=== PATIENT | male | born 1940 | race Caucasian/White ===

== ENCOUNTER 2017-05-22 07:12 | Day surgery (SDC) | payer MEDICARE, OTHER ==
--- NOTE | 2017-05-14 11:24 | RADIOLOGY REPORT (SQ) ---
EXAM DESCRIPTION: CHEST PA/LATERAL COMPLETED DATE/TIME: 05/14/2017 11:02 am REASON FOR STUDY: PRE-OP COMPARISON: Two-view chest 05/16/2016 EXAM PARAMETERS: NUMBER OF VIEWS: two views TECHNIQUE: Digital Frontal and Lateral radiographic views of the chest acquired. RADIATION DOSE: NA LIMITATIONS: none FINDINGS: LUNGS AND PLEURA: Obstructive lung disease with hyperinflation and hyperlucency. Flatteni ng of the hemidiaphragms. Biapical pleural-parenchymal scarring. No acute infiltrates. No pleural effusion. No pneumothorax. MEDIASTINUM AND HILAR STRUCTURES: No masses or contour abnormalities. HEART AND VASCULAR STRUCTURES: Heart normal size. No evidence for failure. BONES: Osteoporotic. No acute changes. Mild convex rightward thoracolumbar curvature HARDWARE: None in the chest. OTHER: No other significant finding. IMPRESSION: Obstructive lung disease TECHNICAL DOCUMENTATION: JOB ID: [id number] [employer]- All Rights Reserved
[2017-05-14 11:30] LABS: APPEARANCE,URINE CLEAR; BILIRUBIN,URINE NEGATIVE (NEGATIVE); GLUCOSE, URINE NEGATIVE (NEGATIVE); KETONES,URINE NEGATIVE (NEGATIVE); LEUKOCYTE ESTERASE,URINE NEGATIVE (NEGATIVE); NITRITE,URINE NEGATIVE (NEGATIVE); PROTEIN,URINE NEGATIVE (NEGATIVE); URINE SPECIFIC GRAVITY 1.004; UROBILINOGEN,URINE NEGATIVE mg/dL (<2.0)
[2017-05-14 11:39] LABS: ABSOLUTE BASOPHILS # (AUTO) 0.1 10^3/uL (0.0-0.2); ABSOLUTE EOSINOPHILS # (AUTO) 0.1 10^3/uL (0.0-0.6); ABSOLUTE LYMPHOCYTES (AUTO) 1.5 10^3/uL (0.5-4.7); ABSOLUTE MONOCYTES (AUTO) 0.6 10^3/uL (0.1-1.4); ABSOLUTE NEUT (AUTO) 5.9 10^3/uL (1.7-8.2); BASOPHILS % (AUTO) 1.2 % (0-2); EOSINOPHILS % (AUTO) 1.6 % (0-6); HEMATOCRIT 43.2 % (37.9-51.0); HEMOGLOBIN 14.3 g/dL (13.5-17.0); HGB HCT DIFFERENCE -0.3; LYMPHOCYTES % (AUTO) 18.4 % (13-45); MEAN CORPUSCULAR HEMOGLOBIN 32.5 pg (27.0-33.4); MEAN CORPUSCULAR HGB CONC 33.1 g/dL (32.0-36.0); MEAN CORPUSCULAR VOLUME 98 fl (80-97); MONOCYTES % (AUTO) 6.8 % (3-13); RED CELL DISTRIBUTION WIDTH 12.7 % (11.5-14.0); WHITE BLOOD COUNT 8.2 10^3/uL (4.0-10.5)
[2017-05-14 11:52] LABS: ANION GAP 10 (5-19); BLOOD UREA NITROGEN 15 mg/dL (7-20); CALCIUM 9.6 mg/dL (8.4-10.2); CARBON DIOXIDE 28 mmol/L (22-30); CHLORIDE 105 mmol/L (98-107); CREATININE RESULT 1.07 mg/dL (0.52-1.25); GLUCOSE 58 mg/dL (75-110); POTASSIUM 5.2 mmol/L (3.6-5.0); SODIUM 143.1 mmol/L (137-145)
--- NOTE | 2017-05-14 20:10 | EKG REPORT ---
SEVERITY:- BORDERLINE ECG - SINUS BRADYCARDIA SHORT TN INTERVAL, ACCELERATED AV CONDUCTION : Confirmed by: Tommy Reed 14-May-2017 20:09:56
[~2017-05-22 07:12] MED LIST: CEFAZOLIN 2 GM/D5W RTU 2 GM/50 ML RTUPB IV PRN; LACTATED RINGERS 1000 ML IV PRN
[2017-05-22] MEDS ORDERED: BUPIVACAINE HCL 0.5%-EPI 1:200000 INJ/PF 30 ML VIAL ONE (08:03)
[2017-05-22] MEDS ORDERED: PROPOFOL INJ 200 MG/20 ML VIAL IV ONE (09:14)
[2017-05-22] MEDS ORDERED: MIDAZOLAM 2 MG/2 ML INJ ONE (09:14)
[2017-05-22] MEDS ORDERED: MORPHINE SULFATE 10 MG/ML INJ ONE (09:14)
[2017-05-22] MEDS ORDERED: LIDOCAINE 1% INJ-PF (10 MG/ML) 30 ML SDV ONE (09:20)
[2017-05-22] MEDS ORDERED: PROMETHAZINE HCL INJ 25 MG/1 ML VIAL IV PRN ×2 (09:44)
[2017-05-22] MEDS ORDERED: MORPHINE SULFATE 10 MG/ML INJ IV PRN (09:44)
[2017-05-22] MEDS ORDERED: FENTANYL CITRATE INJ/PF 100 MCG/2 ML AMPUL IV PRN ×3 (09:44)
[2017-05-22] MEDS ORDERED: MEPERIDINE HCL/PF INJ 25 MG/1 ML DISP.SYRIN IV PRN (09:44)
[2017-05-22] MEDS ORDERED: DIPHENHYDRAMINE HCL 50 MG/ML VIAL IV PRN (09:44)
[2017-05-22] MEDS ORDERED: ONDANSETRON HCL INJ/PF 4 MG/2 ML SDV IV PRN (09:44)
[2017-05-22] MEDS ORDERED: OXYCODONE-ACETAMINOPHEN 5-325 MG TABLET PO PRN ×2 (09:44)
--- NOTE | 2017-05-22 09:48 | Operative Report ---
Operative Report DATE OF SURGERY: 05/22/17 PREOPERATIVE DIAGNOSIS: Left plantar foot mass OPERATION: Excision left foot plantar mass SURGEON: SUSIE MENENDEZ ANESTHESIA: LMAC TISSUE REMOVED OR ALTERED: Soft tissue specimen to pathology ESTIMATED BLOOD LOSS: Minimal PROCEDURE: With the patient prone on the operating table the left lower extremity from the supramalleolar region distal was prepped and draped in sterile fashion. The plantar surface of the foot around an existing soft tissue lesion is insufflated with a combination of Marcaine, Xylocaine, and epinephrine. Subsequent a transverse elliptical incision is made surrounding the lesion. The incision is carried down to the plantar fascia. The masses delivered from the field intact. And sent to pathology for further evaluation. The wound is irrigated. Hemostasis obtained with electrocautery. The wound was reapproximated using interrupted 3-0 nylon. A sterile dressing was applied and patient returned to the PACU in satisfactory condition.
[2017-05-22] MEDS ORDERED: OXYCODONE HCL IR 5 MG TABLET PO PRN (10:04)
[2017-05-22] MEDS ORDERED: ONDANSETRON 4 MG TAB.RAPDIS SL PRN (10:04)
[2017-05-22 12:49] VITALS: BP 125/87
== END 2017-05-22 11:50 | disposition home or self-care (01) ==
LOC: OROUT 07:12
PROVIDERS: ATTEND Orthopaedic Surgery
PROC: 0JBR0ZZ Excision of Left Foot Subcutaneous Tissue and Fascia, Open Approach (ICD-10-PCS; principal; 2017-05-22 09:00)
DX: R22.42 Localized swelling, mass and lump, left lower limb (principal); F17.210 Nicotine dependence, cigarettes, uncomplicated
CPT/HCPCS: 93005; 36415 ×2; 84132; 85025; 85652; 80048; 81001; 88305 ×2; 71020; 93010; 28043; J2250; J3490 ×2; J2704; J0690; 1470; J2270

== ENCOUNTER 2017-07-08 12:50 | Day surgery (SDC) | payer MEDICARE, OTHER ==
[2017-07-08] MEDS ORDERED: FENTANYL CITRATE INJ/PF 100 MCG/2 ML AMPUL ONE (13:34)
[2017-07-08] MEDS ORDERED: ACETAMINOPHEN 100 ML IV ONE (13:35)
[2017-07-08] MEDS ORDERED: PROPOFOL INJ 200 MG/20 ML VIAL IV ONE (13:35)
[2017-07-08] MEDS ORDERED: MIDAZOLAM 2 MG/2 ML INJ ONE (13:35)
[2017-07-08] MEDS ORDERED: CEFAZOLIN 2 GM/D5W RTU 2 GM/50 ML RTUPB IV ONE (13:36)
[2017-07-08] MEDS ORDERED: MEPERIDINE HCL/PF INJ 25 MG/1 ML DISP.SYRIN IV PRN (15:42)
[2017-07-08] MEDS ORDERED: ONDANSETRON HCL INJ/PF 4 MG/2 ML SDV IV PRN (15:42)
[2017-07-08] MEDS ORDERED: PROMETHAZINE HCL INJ 25 MG/1 ML VIAL IV PRN ×2 (15:42)
[2017-07-08] MEDS ORDERED: MORPHINE SULFATE 10 MG/ML INJ IV PRN (15:42)
[2017-07-08] MEDS ORDERED: FENTANYL CITRATE INJ/PF 100 MCG/2 ML AMPUL IV PRN ×3 (15:42)
[2017-07-08] MEDS ORDERED: OXYCODONE-ACETAMINOPHEN 5-325 MG TABLET PO PRN ×2 (15:42)
[2017-07-08] MEDS ORDERED: DIPHENHYDRAMINE HCL 50 MG/ML VIAL IV PRN (15:42)
[2017-07-08] MEDS ORDERED: BUPIVACAINE HCL 0.5%-EPI 1:200000 INJ/PF 30 ML VIAL INJ ONE (15:45)
[2017-07-08] MEDS ORDERED: OXYCODONE HCL IR 5 MG TABLET PO PRN (16:20)
[2017-07-08] MEDS ORDERED: ONDANSETRON 4 MG TAB.RAPDIS SL PRN (16:21)
[2017-07-08 18:29] VITALS: BP 142/69
--- NOTE | 2017-07-09 06:01 | Operative Report ---
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 The skin surrounding the previous resection is insufflated with Marcaine with epinephrine. The existing incision is intact. Sutures are in place. The new incision is spaced 1 cm from the previous incision in an ovoid fashion. It is taken straight down to the underlying metatarsal region with the metatarsal heads exposed. The tissue was marked with 2 sutures on the lateral border and one suture on the medial border. It sent to pathology. Hemostasis was then obtained with electrocautery. The wound was packed with iodoform gauze and placed in posterior plaster splint. The patient's return to the PACU in satisfactory condition.
== END 2017-07-08 17:47 | disposition home or self-care (01) ==
LOC: OROUT 12:50
PROVIDERS: ATTEND Orthopaedic Surgery
PROC: 0JBR0ZZ Excision of Left Foot Subcutaneous Tissue and Fascia, Open Approach (ICD-10-PCS; principal; 2017-07-08 15:15)
DX: C79.2 Secondary malignant neoplasm of skin (principal); D49.89 Neoplasm of unspecified behavior of other specified sites; F17.210 Nicotine dependence, cigarettes, uncomplicated; J41.0 Simple chronic bronchitis
CPT/HCPCS: 11620; 88305 ×2; J2250; J3010; J2704; J0690; J0131; 1470; J3490